=== PATIENT | male | born 1950 | race Caucasian/White ===

== ENCOUNTER → 2021-11-06 09:21 | Outpatient (CLI) | payer MEDICARE, SELFPAY ==
[2021-11-06 10:40] LABS: Alkaline Phosphatase 67 U/L (38-126); Glucose 91 mg/dL (80-110); Potassium 4.3 mmol/L (3.4-5.1); Sodium 138 mmol/L (137-145)
[2021-11-06 11:11] LABS: Prostate Specific Antigen Scrn 2.39 ng/mL (0.1-4.0)
== END ==
PROVIDERS: PCP Internal Medicine; Referring Provider Internal Medicine; Visit Provider Internal Medicine
DX: E78.2 Mixed hyperlipidemia (principal); Z12.5 Encounter for screening for malignant neoplasm of prostate
CPT/HCPCS: 36415; 80053; 80061; G0103

== ENCOUNTER → 2022-10-03 10:28 | Outpatient (CLI) | payer MEDICARE, SELFPAY ==
[2022-10-03 13:25] LABS: Prostate Specific Antigen Scrn 3.23 ng/mL (0.1-4.0)
== END ==
PROVIDERS: PCP Internal Medicine; Referring Provider Urology; Visit Provider Urology
DX: Z12.5 Encounter for screening for malignant neoplasm of prostate (principal)
CPT/HCPCS: 36415; G0103

== ENCOUNTER → 2023-02-24 09:27 | Outpatient (CLI) | payer MEDICARE, SELFPAY ==
[2023-02-24 10:27] LABS: Alanine Aminotransferase 21 IU/L (<50); Albumin 3.7 g/dL (3.5-5.0); Albumin Globulin Ratio 1.2 (1.0-2.8); Alkaline Phosphatase 100 U/L (38-126); Aspartate Aminotransferase 33 IU/L (17-59); BUN Creatinine Ratio 13.6 (6-22); Bilirubin Total 1.1 mg/dL (0.2-1.3); Blood Urea Nitrogen 11 mg/dL (9-20); Carbon Dioxide 30 mmol/L (22-32); Chloride 99 mmol/L (98-107); Cholesterol 137 mg/dL (140-199); Estimated Glomerular Filt Rate > 60 mL/min (>60); Glucose 76 mg/dL (80-110); HDL Cholesterol 35 mg/dL (40-60); HEMOLYSIS < 15 (0-50); LDL Cholesterol Calculated 86 mg/dL (<100); Sodium 136 mmol/L (137-145); Total Protein 6.7 g/dL (6.3-8.2); Triglycerides 80 mg/dL (35-150)
== END ==
PROVIDERS: PCP Internal Medicine; Referring Provider Internal Medicine; Visit Provider Internal Medicine
DX: E78.2 Mixed hyperlipidemia (principal); Z79.899 Other long term (current) drug therapy
CPT/HCPCS: 36415; 80053; 80061

== ENCOUNTER 2023-03-10 08:37 | Outpatient (RCR) | payer MEDICARE, SELFPAY ==
--- NOTE | 2023-03-10 11:05 | PT.OIE ---
Current Diagnoses Dorsalgia, unspecified (03/10/23) Past Medical History (Last Updated 02/17/23 @ 11:49 by Juan Lombardo MD) Ankle fracture (~1957) Benign prostatic hyperplasia Carpal tunnel syndrome (~2014) Glaucoma (~2015) Lower urinary tract symptoms Mixed hyperlipidemia Retinal embolus (~2015) TIA (transient ischemic attack) Past Surgical History (Last Reviewed 10/14/22 @ 12:46 by Osiel Mejia MD) Anesthesia History of ankle surgery (~1957) S/P carpal tunnel release (~2014) Visit Care Team Role Provider Type Juan Lombardo MD Attending Provider Physician Family Provider Primary Care Provider Referring Provider Specialty: Internal Medicine Address: [address] [place] [address], [address], [facility] Email: [email or web address] Physical Therapy Initial Evaluation PT-OP-A Visit Information Start: 03/10/23 08:07 Freq: Status: Active Protocol: Document 03/10/23 09:09 TH (Rec: 03/10/23 11:05 [id number]) Out-Patient Physical Therapy Visit Information Visit Information Visit Type Initial Evaluation Visit Note Pt state that he started back to egym in aug. of LAST YEAR , L[employer]ING WEIGHTS ETC. AND THEN IN Sep. right lower back pain developed. Pain has continued to progress since. Visit Start Time 09:00 Visit Stop Time 09:45 Total Visit Minutes 45 Visit Number 1 Number of LOCKSTITCH BINDER Visits 0 Precautions Precautions Hx of stroke PT-OP-B Current Condition Start: 03/10/23 08:07 Freq: Status: Active Protocol: Document 03/10/23 09:09 TH (Rec: 03/10/23 11:05 TH [id number]) Current Condition Prior Functional Status Baseline Function- ADL's Independent Baseline Function- Mobility Independent Baseline Function- Gait IND without AD Baseline Function- Recreation/Hobbies IND Current Functional Impairments (Reported) Functional Limitations- ADL's IND Functional Limitations- Mobility/Gait IND however lifting heavy objects causes flare ups. Prolonged sitting/walking increase pain. PT-OP-J Posture/Palpation/Skin Start: 03/10/23 08:07 Freq: Status: Active Protocol: Document 03/10/23 09:09 TH (Rec: 03/10/23 11:05 TH [id number]) Posture Evaluation Comments Posture Comments R side concave, R LE increased ER, Increased T spine ext. R trunk ant. rot., R LE functionally shorter than L LE . Hypomobile lumbar spine flex /ext and rot. r Palpation Assessment Location lower back Palpation Details Tender along thoraco-lumbar paraspinals right side especially at T12-L4 PT-OP-K Range of Motion Start: 03/10/23 08:07 Freq: Status: Active Protocol: Document 03/10/23 09:09 TH (Rec: 03/10/23 11:05 [id number]) Lumbar Spine Range of Motion Lumbar Spine Active Comments Flex: WNL ( rotation r to l ) Ext: WNL Rot: r limited/ l WFL PT-OP-Q Treatments Start: 03/10/23 08:07 Freq: Status: Active Protocol: Document 03/10/23 09:09 TH (Rec: 03/10/23 11:05 [id number]) Manual Therapy Treatment Manual Techniques long axis traction Comments right iliopsoas release Comments right Self-Care/Home Management Treatment Education Patient Education Home Exercise Program Other Education Access Code: [email or web address] URL: [email or web address] Date: 03/10/2023 Prepared by: Tonja Arauz Exercises - Supine Quadriceps Stretch with Strap on Table - 1 x daily - 7 x weekly - 1 sets - 3 reps - 30-60 sec hold PT-OP-T Assessment and Plan Start: 03/10/23 08:07 Freq: Status: Active Protocol: Document 03/10/23 09:09 TH (Rec: 03/10/23 11:05 [id number]) Physical Therapy Assessment Rehab Potential Rehabilitation Potential Excellent Impairments Impairments Activity Tolerance,Pain, Posture Goals 3 Impairment Unable to hike without flare up of LBP afterwards Short Term Goal (STG) Pt will be able to hike mild to moderate inclines with < = 4/10 LBP STG Duration 04/21/23 Halfway Goal (LTG) Pt will be able to hike mod to difficult inclines with minmal to no LBP. LTG Duration 06/02/23 2 Impairment Unable to tolerate prolonged sitting. Short Term Goal (STG) Pt will be able to tolerate sitting for > = 30 min with <= 4/10 lower back pain. STG Duration 04/21/23 Voip Network Engineer Goal (LTG) Pt will be able to tolerate sitting for > = 45 min with minmal to no lower back pain. LTG Duration 06/02/23 1 Impairment right hip ant rot. Short Term Goal (STG) Right hip ant. rot. will improve by 50 % STG Duration 04/21/23 Voip Network Engineer Goal (LTG) Right hip ant rot will improve by 100 % LTG Duration 06/02/23 Assessment Summary Assessment Pt presents with muscle imbalance of core/hip muscles leading to increased strain on thoraco-limbar paraspinals ( right). Pt will benefit from further PT to improve core/hip strength. If pain persists after 2-3 visits will refer back to MD to r/o kidney involvement. Physical Therapy Plan Frequency and Duration Frequency of Treatment 1x/Week Duration of treatment (weeks) 12 Plan of Care Start Date 03/10/23 Plan of Care End Date 06/02/23 Therapeutic Interventions Therapeutic Interventions Gait Training,Home Exercise Program,Joint Mobilizations, Manual Therapy,Neuromuscular Re-education,Orthotic/ Prosthetic Management,Patient/ Caregiver Education,Self-Care/ Home Management,Soft Tissue Mobilization,Taping, Therapeutic Activities, Therapeutic Exercises Modalities Cold Pack/Ice Massage,Electric Stimulation,Hot Packs, Traction- Mechanical, Ultrasound Next Visit Focus/Plan Next Visit Plan Iliopsoas release long axis traction core/hip strengthening
--- NOTE | 2023-03-10 11:05 | PT.OPPOC ---
Physical, Occupational & Speech Therapy At [facility] Current Diagnoses Dorsalgia, unspecified (03/10/23) Visit Care Team Role Provider Type Juan Lombardo MD Attending Provider Physician Family Provider Primary Care Provider Referring Provider Specialty: Internal Medicine Address: [address] [place] [address], [address], [address] Email: [email or web address] Plan Of Care PT-OP-T Assessment and Plan Start: 03/10/23 08:07 Freq: Status: Active Protocol: Document 03/10/23 09:09 TH (Rec: 03/10/23 11:05 TH [id number]) Physical Therapy Assessment Rehab Potential Rehabilitation Potential Excellent Impairments Impairments Activity Tolerance,Pain, Posture Goals 3 Impairment Unable to hike without flare up of LBP afterwards Short Term Goal (STG) Pt will be able to hike mild to moderate inclines with < = 4/10 LBP STG Duration 04/21/23 Skilled Nursing Goal (LTG) Pt will be able to hike mod to difficult inclines with minmal to no LBP. LTG Duration 06/02/23 2 Impairment Unable to tolerate prolonged sitting. Short Term Goal (STG) Pt will be able to tolerate sitting for > = 30 min with <= 4/10 lower back pain. STG Duration 04/21/23 Manager Interventional Goal (LTG) Pt will be able to tolerate sitting for > = 45 min with minmal to no lower back pain. LTG Duration 06/02/23 1 Impairment right hip ant rot. Short Term Goal (STG) Right hip ant. rot. will improve by 50 % STG Duration 04/21/23 Skilled Nursing Goal (LTG) Right hip ant rot will improve by 100 % LTG Duration 06/02/23 Assessment Summary Assessment Pt presents with muscle imbalance of core/hip muscles leading to increased strain on thoraco-limbar paraspinals ( right). Pt will benefit from further PT to improve core/hip strength. If pain persists after 2-3 visits will refer back to MD to r/o kidney involvement. Physical Therapy Plan Frequency and Duration Frequency of Treatment 1x/Week Duration of treatment (weeks) 12 Plan of Care Start Date 03/10/23 Plan of Care End Date 06/02/23 Therapeutic Interventions Therapeutic Interventions Gait Training,Home Exercise Program,Joint Mobilizations, Manual Therapy,Neuromuscular Re-education,Orthotic/ Prosthetic Management,Patient/ Caregiver Education,Self-Care/ Home Management,Soft Tissue Mobilization,Taping, Therapeutic Activities, Therapeutic Exercises Modalities Cold Pack/Ice Massage,Electric Stimulation,Hot Packs, Traction- Mechanical, Ultrasound Next Visit Focus/Plan Next Visit Plan Iliopsoas release long axis traction core/hip strengthening Plan of Care Dates Plan of Care Start Date 03/10/23 Plan of Care End Date 06/02/23 Electronically Signed by: Tonja Arauz, PT 03/10/23 1258 If you are in agreement with this Plan of Care, please return a signed and dated copy. I have reviewed this Plan of Care and certify that the skilled therapy services above are required to meet the patient?s needs. Physician Signature Date Printed Name and Credentials Clinical Instructor Signature Printed Name and Credentials
--- NOTE | 2023-04-15 08:11 | PT.OPDS ---
Current Diagnoses Dorsalgia, unspecified (03/10/23) Visit Care Team Role Provider Type Juan Lombardo MD Attending Provider Physician Family Provider Primary Care Provider Referring Provider Specialty: Internal Medicine Address: [address] [place] [address], [address], [address] Email: [email or web address] Visit Number Visit Number 1 Discharge Summary PT-OP-B Current Condition Start: 03/10/23 08:07 Freq: Status: Active Protocol: Document 03/10/23 09:09 TH (Rec: 03/10/23 11:05 TH [id number]) Current Condition Prior Functional Status Baseline Function- ADL's Independent Baseline Function- Mobility Independent Baseline Function- Gait IND without AD Baseline Function- Recreation/Hobbies IND Current Functional Impairments (Reported) Functional Limitations- ADL's IND Functional Limitations- Mobility/Gait IND however lifting heavy objects causes flare ups. Prolonged sitting/walking increase pain. PT-OP-J Posture/Palpation/Skin Start: 03/10/23 08:07 Freq: Status: Active Protocol: Document 03/10/23 09:09 TH (Rec: 03/10/23 11:05 TH [id number]) Posture Evaluation Comments Posture Comments R side concave, R LE increased ER, Increased T spine ext. R trunk ant. rot., R LE functionally shorter than L LE . Hypomobile lumbar spine flex /ext and rot. r Palpation Assessment Location lower back Palpation Details Tender along thoraco-lumbar paraspinals right side especially at T12-L4 PT-OP-K Range of Motion Start: 03/10/23 08:07 Freq: Status: Active Protocol: Document 03/10/23 09:09 TH (Rec: 03/10/23 11:05 TH [id number]) Lumbar Spine Range of Motion Lumbar Spine Active Comments Flex: WNL ( rotation r to l ) Ext: WNL Rot: r limited/ l WFL PT-OP-T Assessment and Plan Start: 03/10/23 08:07 Freq: Status: Active Protocol: Document 04/15/23 08:10 AMB (Rec: 04/15/23 08:11 AMB [id number]) Physical Therapy Assessment Assessment Summary Assessment Pt called clinic to cancel all appointments and is therefore discharged. He has not been seen since initial eval. Physical Therapy Plan Discharge Physical Therapy Discharge Reasons Patient Request
== END 2023-04-15 09:46 | disposition home or self-care (01) ==
LOC: PHYS 08:37
PROVIDERS: Family Provider Internal Medicine; PCP Internal Medicine; Referring Provider Internal Medicine; Visit Provider Internal Medicine
DX: M54.9 Dorsalgia, unspecified (principal)
CPT/HCPCS: 97140; 97161

== ENCOUNTER → 2023-03-16 09:32 | Outpatient (CLI) | payer MEDICARE, SELFPAY ==
[2023-03-16 10:03] LABS: Add Manual Diff / Slide Review NO; Basophils Absolute Auto 100 /uL (0-100); Basophils Percent Auto 0.5 % (0-2); Eosinophils Absolute Auto 100 /uL (0-450); Eosinophils Percent Auto 0.5 % (2-4); Hemoglobin 14.9 g/dL (13.5-17.5); Lymphocytes Absolute Auto 1300 /uL (1100-4500); Lymphocytes Percent Auto 10.2 % (25-40); Mean Corpuscular Volume 91.2 fL (80-100); Monocytes Absolute Auto 1100 /uL (0-900); Monocytes Percent Auto 8.9 % (3-14); Neutrophils Absolute Auto 10000 /uL (1500-7000); Neutrophils Percent Auto 79.9 % (50-75); Platelet Count 343 X10^3/uL (150-400); Red Blood Cell Count 4.82 X10^6/uL (4.5-5.9); Red Cell Distribution Width 13.5 % (11.6-14.8); White Blood Cell Count 12.5 X10^3/uL (4.5-11.0)
[2023-03-16 10:52] LABS: TSH w/ Reflex to FT4 2.06 uIU/mL (0.47-4.68)
[2023-03-16 17:23] LABS: Hep C Virus Ab w/Reflex Quant NEGATIVE s/c (NEGATIVE)
== END ==
PROVIDERS: Family Provider Internal Medicine; PCP Internal Medicine; Referring Provider Student in an Organized Health Care Education/Training Program; Visit Provider Student in an Organized Health Care Education/Training Program
DX: R06.02 Shortness of breath (principal); Z11.59 Encounter for screening for other viral diseases
CPT/HCPCS: 36415; 84443; 85025; 86803

== ENCOUNTER → 2023-03-17 14:45 | Outpatient (CLI) | payer MEDICARE, SELFPAY ==
--- NOTE | 2023-03-17 14:45 | DI.CT.S_ITS ---
PROCEDURE: CT ANGIO CHEST PE PROTOCOL INDICATIONS: Dyspnea at rest, hypertensive urgency TECHNIQUE: After the administration of intravenous contrast, 2 mm thick sections acquired from the pulmonary apices to the posterior costophrenic angles. 3-dimensional maximum intensity projection (MIP) coronal and sagittal reformats were then acquired through the thorax. For radiation dose reduction, the following was used: automated exposure control, adjustment of mA and/or kV according to patient size. COMPARISON: None. FINDINGS: Image quality: Excellent. Pulmonary arteries: Pulmonary arteries are normal in size, and demonstrate no intraluminal filling defects to suggest central pulmonary embolism. Lungs and pleura: Large right pleural effusion with associated atelectasis. Within the atelectatic right lung, there is a 4.2 x 2.9 centimeter region of decreased enhancement (series 4, image 102). Scattered solid pulmonary nodules, largest measuring 0.7 centimeters in the left upper lobe (5/55). Mediastinum: Enlarged subcarinal lymph node measuring 2.1 centimeter short axis (4/70). Borderline cardiomegaly. Bones and chest wall: No suspicious bony lesions. Ribs and thoracic spine appear intact throughout. Thyroid gland is unremarkable. Enlarged supraclavicular lymph nodes. For instance, a left supraclavicular fossa node measuring 1 centimeter short axis (4/14). Abdomen: 2.2 centimeter left adrenal nodule (4/144). Hypoattenuating liver lesion measuring 1.4 centimeters (4/141). Additional smaller hypoattenuating liver lesions are present. IMPRESSION: No pulmonary embolus. Large right pleural effusion. Suspect malignancy in the right lower lobe, with a region of Low attenuation within the atelectatic lung, measuring approximately 4.2 x 2.9 centimeters. Enlarged subcarinal lymph node and prominent supraclavicular lymph nodes, with contralateral pulmonary nodules are suspicious. Indeterminate left adrenal nodule and hepatic lesions, also suspicious. Findings were discussed with Dr. Mckeon and Dr. Wilkes at time of dictation. Dictated by: Mack Noland M.D. on 03/17/2023 at 15:08 Approved by: Mack Noland M.D. on 03/17/2023 at 15:30
== END ==
PROVIDERS: Family Provider Internal Medicine; PCP Internal Medicine; Referring Provider Student in an Organized Health Care Education/Training Program; Visit Provider Student in an Organized Health Care Education/Training Program
DX: J90 Pleural effusion, not elsewhere classified (principal); R06.02 Shortness of breath; R91.8 Other nonspecific abnormal finding of lung field; R59.0 Localized enlarged lymph nodes; E27.9 Disorder of adrenal gland, unspecified; K76.9 Liver disease, unspecified
CPT/HCPCS: 71275; Q9967

== ENCOUNTER → 2023-03-18 12:33 | Outpatient (CLI) | payer MEDICARE, SELFPAY ==
--- NOTE | 2023-03-18 | DI.RAD.S_ITS ---
PROCEDURE: XR CHEST 1V INDICATIONS: POST THORACENTISIS TECHNIQUE: One view of the chest was acquired. COMPARISON: None. FINDINGS: Surgical changes and devices: None. Lungs and pleura: There is a moderate to large right pleural effusion. The left lung is clear. No pneumothorax. Mediastinum: Mediastinal contours appear normal. Heart size is normal. Bones and chest wall: No suspicious bony lesions. Overlying soft tissues appear unremarkable. IMPRESSION: No pneumothorax after right thoracentesis. Dictated by: Angelica Amaral M.D. on 03/18/2023 at 15:10 Approved by: Angelica Amaral M.D. on 03/18/2023 at 15:11
--- NOTE | 2023-03-18 | PATH_ITS ---
Note [facility] Accession Number: [id number] TESTS RESULT FLAG UNITS REF RANGE LAB Clinician Provided Cytology Information No. of containers..01 Other (Miscellaneous) Source: [A] 01 RIGHT PLEURAL EFFUSI DIAGNOSIS: [A] 01 RIGHT PLEURAL EFFUSION, THORACENTESIS. SUSPICIOUS FOR MALIGNANCY. SUSPICIOUS FOR ADENOCARCINOMA, SEE COMMENT. COMMENT: THERE ARE MARKEDLY ATYPICAL EPITHELIOID CELLS WITH PROMINENT NUCLEOLUS AND VACUOLATED CYTOPLASM. THERE ARE ALSO CROWDED, THREE-DIMENSIONAL GROUPS OF MARKEDLY ATYPICAL CELLS. IMMUNOSTAINS WILL BE PERFORMED FOR FURTHER EVALUATION AND RESULTS WILL FOLLOW IN AN ADDENDUM REPORT WHICH WILL REFLECT THE FINAL DIAGNOSIS. THIS INTERPRETATION INCLUDES EVALUATION OF A CELL BLOCK. Pathologist ICD10: 01 J90 Signed out by: Carolyne Washington MD, Pathologist NPI- [id number] Performed by: Osiel Maya, Drafter Commercial ([facility]) Gross description: 01 65 CC, ORANGE, CLOUDY RECEIVED: FRESH IN ORANGE CAP CONTAINER.VO /VDU 03/19/2023 1017 Local FLAG LEGEND: L-Low Normal,H-High Normal,LL-Alert Low,HH-Alert High <-Panic Low,>-Panic High,A-Abnormal,AA-Critical Abnormal Performed at: 01 =Z [facility] [address] [place] [address] [address], [place] [address] Jacinto Doshi MD, Specimen Comment: A courtesy copy of this report has been sent to [phone], [phone] Specimen Comment: [id number] Performed at: 01 [facility] [address] [address], [place], [place] [id number] MD Jacinto Doshi MD Phone: [phone]
--- NOTE | 2023-03-18 12:35 | DI.US.S_ITS ---
PROCEDURE: US THORACENTESIS INDICATIONS: RT PLEURAL EFFUSION - DIAGNOSTIC (CYTOLOGY ONLY)/THERAPEUTIC TECHNIQUE: The indications, alternatives, benefits, risks, and complications of the procedure were explained to the patient. Written informed consent was obtained and placed in the chart. The chest was examined sonographically, and an appropriate site was chosen for thoracentesis. The skin was prepared and draped in the usual sterile fashion, and 1% lidocaine was infiltrated from the skin down through the pleural surface. A 19-gauge catheter-covered needle was then introduced into the pleural space, the catheter was advanced and the needle was withdrawn, and thereafter pleural fluid was aspirated. The catheter was then removed and a dressing was applied. COMPARISON: None. FINDINGS: Access site: Right hemithorax. Needle: One-Step centesis catheter with introducer needle. Fluid volume and description: 1000 mL, clear, straw-colored fluid. Fluid sent for diagnostic testin mL fluid Medications: 1% lidocaine for local anaesthesia. Complications: None; post-procedural chest radiograph is pending to assess for pneumothorax. IMPRESSION: Successful ultrasound-guided thoracentesis. Dictated by: Mack Noland M.D. on 03/18/2023 at 16:07 Approved by: Mack Noland M.D. on 03/18/2023 at 16:08
[2023-03-18 13:13] LABS: INR 1.1 (0.9-1.3); Prothrombin Time 12.7 SECONDS (10.1-12.7)
== END ==
PROVIDERS: Family Provider Internal Medicine; PCP Internal Medicine; Referring Provider Student in an Organized Health Care Education/Training Program; Visit Provider Student in an Organized Health Care Education/Training Program
DX: R06.02 Shortness of breath (principal); J90 Pleural effusion, not elsewhere classified; Z01.818 Encounter for other preprocedural examination
CPT/HCPCS: 32555; 36415; 71045; 85610

== ENCOUNTER → 2023-12-28 13:23 | Outpatient (CLI) | payer MEDICARE, SELFPAY ==
[2023-12-28 14:47] LABS: Prostate Specific Antigen 9.63 ng/mL (0.10-4.00)
== END ==
PROVIDERS: Family Provider Internal Medicine; PCP Internal Medicine; Referring Provider Specialist; Visit Provider Specialist
DX: N40.1 Benign prostatic hyperplasia with lower urinary tract symptoms (principal); R39.11 Hesitancy of micturition; R39.9 Unspecified symptoms and signs involving the genitourinary system
CPT/HCPCS: 36415; 84153

== ENCOUNTER → 2024-01-13 08:37 | Outpatient (CLI) | payer OTHER, SELFPAY ==
[2024-01-13 10:51] LABS: Alanine Aminotransferase 82 IU/L (<50); Albumin 3.4 g/dL (3.5-5.0); Alkaline Phosphatase 59 U/L (38-126); Aspartate Aminotransferase 70 IU/L (17-59); BUN Creatinine Ratio 23.4 (6-22); Bilirubin Total 1.1 mg/dL (0.2-1.3); Blood Urea Nitrogen 25 mg/dL (9-20); Calcium 8.7 mg/dL (8.4-10.2); Carbon Dioxide 29 mmol/L (22-32); Chloride 101 mmol/L (98-107); Cholesterol 184 mg/dL (140-199); Estimated Glomerular Filt Rate > 60 mL/min (>60); Globulin 3.3 g/dL (1.7-4.1); Glucose 89 mg/dL (80-110); HDL Cholesterol 51 mg/dL (40-60); HEMOLYSIS < 15 (0-50); LDL Cholesterol Calculated 103 mg/dL (<100); Potassium 3.8 mmol/L (3.4-5.1); Sodium 135 mmol/L (137-145); Total Protein 6.7 g/dL (6.3-8.2); Triglycerides 149 mg/dL (35-150)
== END ==
PROVIDERS: PCP Family Medicine; Referring Provider Family Medicine; Visit Provider Family Medicine
DX: E78.2 Mixed hyperlipidemia (principal); H40.9 Unspecified glaucoma
CPT/HCPCS: 36415; 80053; 80061

== ENCOUNTER → 2024-01-27 14:16 | Outpatient (CLI) | payer MEDICARE, SELFPAY ==
[2024-01-29 12:57] LABS: PSA Free % 20.3 % (.); PSA, Total 6.4 ng/mL (0.0-4.0)
== END ==
PROVIDERS: PCP Family Medicine; Referring Provider Specialist; Visit Provider Specialist
DX: R33.9 Retention of urine, unspecified (principal); N40.1 Benign prostatic hyperplasia with lower urinary tract symptoms; N13.8 Other obstructive and reflux uropathy; N40.0 Benign prostatic hyperplasia without lower urinary tract symptoms; R39.9 Unspecified symptoms and signs involving the genitourinary system; R97.20 Elevated prostate specific antigen [PSA]
CPT/HCPCS: 84153; 84154

== ENCOUNTER → 2024-02-15 12:21 | Outpatient (CLI) | payer MEDICARE, SELFPAY ==
[2024-02-15 13:20] LABS: Urine Drug scr, USCG NIDA See Separate Report
== END ==
PROVIDERS: PCP Family Medicine; Referring Provider Family Medicine; Visit Provider Family Medicine
DX: Z02.83 Encounter for blood-alcohol and blood-drug test (principal)
CPT/HCPCS: 81099

== ENCOUNTER → 2024-04-20 13:04 | Outpatient (CLI) | payer MEDICARE, SELFPAY ==
[2024-04-22 08:13] LABS: PSA Free % 19.8 % (.); PSA, Total 6.1 ng/mL (0.0-4.0)
== END ==
PROVIDERS: PCP Family Medicine; Referring Provider Specialist; Visit Provider Specialist
DX: R97.20 Elevated prostate specific antigen [PSA] (principal)
CPT/HCPCS: 36415; 84153; 84154

== ENCOUNTER → 2024-07-29 10:27 | Outpatient (CLI) | payer MEDICARE, SELFPAY ==
[2024-07-29 13:25] LABS: Alanine Aminotransferase 22 IU/L (<50); Albumin 3.3 g/dL (3.5-5.0); Albumin Globulin Ratio 1.2 (1.0-2.8); Alkaline Phosphatase 55 U/L (38-126); Aspartate Aminotransferase 40 IU/L (17-59); BUN Creatinine Ratio 12.3 (6-22); Bilirubin Total 0.5 mg/dL (0.2-1.3); Blood Urea Nitrogen 20 mg/dL (9-20); Calcium 8.5 mg/dL (8.4-10.2); Carbon Dioxide 28 mmol/L (22-32); Chloride 103 mmol/L (98-107); Estimated Glomerular Filt Rate 44 mL/min (>60); Globulin 2.8 g/dL (1.7-4.1); Glucose 74 mg/dL (80-110); HEMOLYSIS < 15 (0-50); Potassium 4.2 mmol/L (3.4-5.1); Sodium 137 mmol/L (137-145); Total Protein 6.1 g/dL (6.3-8.2)
[2024-07-31 01:07] LABS: PSA Free % 20.2 % (.); PSA, Total 4.5 ng/mL (0.0-4.0)
== END ==
PROVIDERS: PCP Family Medicine; Referring Provider Urology; Visit Provider Urology
DX: R74.01 Elevation of levels of liver transaminase levels (principal); R97.20 Elevated prostate specific antigen [PSA]
CPT/HCPCS: 36415; 80053; 84153; 84154

== ENCOUNTER → 2024-08-10 13:42 | Outpatient (CLI) | payer MEDICARE, SELFPAY ==
[2024-08-10 16:49] LABS: BUN Creatinine Ratio 13.6 (6-22); Blood Urea Nitrogen 22 mg/dL (9-20); Calcium 8.9 mg/dL (8.4-10.2); Carbon Dioxide 31 mmol/L (22-32); Chloride 102 mmol/L (98-107); Estimated Glomerular Filt Rate 44 mL/min (>60); Glucose 94 mg/dL (80-110); HEMOLYSIS < 15 (0-50); Sodium 138 mmol/L (137-145)
== END ==
PROVIDERS: PCP Family Medicine; Referring Provider Family Medicine; Visit Provider Family Medicine
DX: R79.89 Other specified abnormal findings of blood chemistry (principal)
CPT/HCPCS: 36415; 80048

== ENCOUNTER → 2024-08-31 14:26 | Outpatient (CLI) | payer MEDICARE, SELFPAY ==
[2024-08-31 15:34] LABS: BUN Creatinine Ratio 11.8 (6-22); Blood Urea Nitrogen 18 mg/dL (9-20); Carbon Dioxide 30 mmol/L (22-32); Chloride 103 mmol/L (98-107); Estimated Glomerular Filt Rate 47 mL/min (>60); Glucose 99 mg/dL (80-110); HEMOLYSIS < 15 (0-50); Potassium 4.2 mmol/L (3.4-5.1); Sodium 136 mmol/L (137-145)
== END ==
LOC: LAB 14:27
PROVIDERS: PCP Family Medicine; Referring Provider Internal Medicine Endocrinology, Diabetes & Metabolism; Visit Provider Internal Medicine Endocrinology, Diabetes & Metabolism
DX: R78.89 Finding of other specified substances, not normally found in blood (principal)
CPT/HCPCS: 36415; 80048

== ENCOUNTER → 2024-12-02 10:33 | Outpatient (CLI) | payer MEDICARE, SELFPAY ==
[2024-12-02 11:25] LABS: BUN Creatinine Ratio 13.4 (6-22); Blood Urea Nitrogen 25 mg/dL (9-20); Calcium 9.3 mg/dL (8.4-10.2); Carbon Dioxide 29 mmol/L (22-32); Chloride 104 mmol/L (98-107); Estimated Glomerular Filt Rate 37 mL/min (>60); Glucose 85 mg/dL (80-110); HEMOLYSIS < 15 (0-50); Potassium 4.4 mmol/L (3.4-5.1); Sodium 138 mmol/L (137-145)
[2024-12-03 08:36] LABS: PSA, Total 4.2 ng/mL (0.0-4.0)
== END ==
LOC: LAB 10:34
PROVIDERS: Urology; PCP Family Medicine; Referring Provider Internal Medicine Cardiovascular Disease; Visit Provider Internal Medicine Cardiovascular Disease
DX: I10 Essential (primary) hypertension (principal); N40.1 Benign prostatic hyperplasia with lower urinary tract symptoms; N13.8 Other obstructive and reflux uropathy; R97.20 Elevated prostate specific antigen [PSA]
CPT/HCPCS: 36415; 80048; 84153; 84154